=== PATIENT | male | born 1970 | race African-American/Black ===

== ENCOUNTER 2021-11-27 17:43 | Emergency (ER) | payer MEDICARE, MEDICAID ==
[~2021-11-27] VITALS: Ht 167.6 cm; Wt 102.0 kg
[2021-11-27 17:53] VITALS: BP 160/78
== END 2021-11-27 22:51 | disposition home or self-care (01) ==
LOC: ER 17:43
DX: I12.0 Hypertensive chronic kidney disease with stage 5 chronic kidney disease or end stage renal disease (principal); N18.6 End stage renal disease; Z13.9 Encounter for screening, unspecified
CPT/HCPCS: 76770; 99284

== ENCOUNTER → 2023-02-17 | Outpatient (CLI) | payer MEDICARE, MEDICAID | END | disposition home or self-care (01) | LOC: US 13:17 | PROVIDERS: ATTEND Internal Medicine Nephrology | DX: N28.1 Cyst of kidney, acquired (principal); Z90.5 Acquired absence of kidney | CPT/HCPCS: 76770 ==